=== PATIENT | male | born 1950 | race Caucasian/White ===

== ENCOUNTER 2019-11-13 14:55 | Emergency (ER) | payer OTHER, SELFPAY ==
--- NOTE | ~2019-11-13 | CT_ITS ---
EXAMINATION: CT brain wo con DATE: 11/13/2019 18:54 INDICATION: Vertigo TECHNIQUE: Computed tomography (CT) of the head was performed without intravenous contrast. The dose- length product was 681.00 mGy-cm. The mA was adjusted according to patient size. Iterative reconstruc tion technique was employed. COMPARISON: None FINDINGS: Brain parenchymal volume is normal for age. There are surgical changes in the right lobe. T here are scattered mild periventricular and subcortical white matter changes, most likely related to small vessel ischemic disease (microangiopathy). No ventriculomegaly or midline shift. Basilar cister ns are patent.There is mucosal thickening of the right maxillary sinus. Mastoids are pneumatized. No depressed skull fractures. No acute intracranial hemorrhage, infarction, mass or mass effect. Midline sagittal images are unremarkable. IMPRESSION: 1. No acute intracranial abnormality. 2: Chronic age-related findings. Reviewed, dictated and finalized at location A. TARY LANDFILL OPERATOR
[2019-11-13 15:00] VITALS: BP 172/105; PULSE 77; RESP 20; TEMP 37.2; O2SAT 100
--- NOTE | 2019-11-13 15:03 | ECG_ITS ---
Measurements Intervals [place] Rate: 67 P: 50 MS: 156 QRS: 9 QRSD: 86 T: 31 QT: 370 QTc: 391 Interpretive Statements SINUS RHYTHM BORDERLINE ST-T WAVE ABNORMALITY- INFERIOR LEADS BASELINE ARTIFACT- I, II, AVR, AVL, AVF BORDERLINE ECG Electronically Signed On 11-13-2019 17:34:04 [employer]IST[employer] by Macario Macdonald D.O.
--- NOTE | 2019-11-13 18:19 | ED.DIZZY ---
HPI - Dizziness General Chief Complaint: Dizziness Stated Complaint: little touch of the vertigo Time Seen by Provider: 11/13/19 18:16 Source: patient and RN notes reviewed Mode of arrival: ambulatory Limitations: no limitations History of Present Illness HPI Narrative: Pt is a 69 y/o male who presents to the ED with c/o dizziness starting 2 days ago. He notes that he slipped on ice and fell while getting out of his van 10 days ago. Pt states that he struck the lt side of his head on the door of his van during the fall. He notes that he tried getting out of bed Wednesday morning when he suddenly felt funky, stating that the room began spinning. Pt notes that he was unable to fully get out of bed for some time due to his symptoms, but states that his symptoms alleviated later Wednesday night. He notes that his dizziness is aggravated with laying on his rt side. Pt also reports a diffuse rt sided headache, intermittent rt sided toothache since yesterday, and chronic tinnitus. He denies any nausea, vomiting, or weakness. MD elicited complaint: dizziness Onset (ago): day(s) (2) Timing: sudden onset Description: room spinning Context: change in body position Exacerbating factors: change in body position and position/lying down (laying on rt side) Associated symptoms: tinnitus (chronic) and other (diffuse rt sided headache; rt sided toothache) Related Data Home Medications Medication Instructions Recorded Confirmed brimonidine 0.1 % eye drops See Rx Instructions .ROUTE .COMPLEX 09/29/19 dorzolamide 22.3 mg-timolol 6.8 See Rx Instructions .ROUTE .COMPLEX 09/29/19 mg/mL eye drops timolol 0.5 % eye drops See Rx Instructions .ROUTE .COMPLEX 09/29/19 lisinopril 20 mg tablet 20 mg PO DAILY 10/05/19 uwuizoje-ktr-lwpgm acid 300 1 tablet PO DAILY 10/05/19 mcg-lycopene 600 mcg-lutein 300 mcg tablet omega-3s 300 ei-hyz-wra-other cap PO DAILY cap 10/05/19 kmtvu2j-udee oil 1,000 mg capsule Allergies Allergy/AdvReac Type Severity Reaction Status Date / Time No Known Allergies Allergy Mild Verified 11/29/15 10:31 Review of Systems Review of Systems: All systems reviewed & are unremarkable except as noted in HPI and below ENT: Reports dental pain (rt sided toothache) and Reports tinnitus (chronic) Gastrointestinal: Gastrointestinal: Denies nausea and Denies vomiting Neurologic: Reports dizziness, Reports headache(s) (diffuse rt sided) and Denies weakness PMFSH Past Medical History Medical History Cataracts, bilateral Gout HTN (hypertension) Pneumonia Surgical History Surgical History Hx of appendectomy Hx of cataract surgery lens implant in rt eye Social History Social History Smoking status: Never smoker Alcohol intake: never Exam Const: General: no acute distress, well developed and other (elderly) Nutritional Appearance: well nourished HENMT: Ears: external ears normal and TM's normal bilaterally Mouth: Yes lip normal and Yes moist mucous membranes Eyes: Conjunctivae: conjunctivae normal Pupils: Equal, round and reactive pupils present EOM: Nystagmus present (rt going) Resp: Effort & Inspection: normal respiratory effort Auscultation: clear to auscultation bilaterally Cardio: Rate: regular rate Rhythm: regular rhythm Heart sounds: no murmurs GI: GI Palp: Yes Soft to palpation and No Tenderness to palpation present (GI) Auscultation: normal bowel sounds Skin: General skin exam: normal color, dry skin and other (warm) Neuro: General: patient oriented x3 (alert) Speech: normal speech Extrem: General: full ROM Psych: Mental Status: mental status grossly normal Affect: normal affect Course Vital Signs Vital signs: Vital Signs Temperature 37.2 C 11/13/19 15:00 Pulse Rate 77 11/13/19 15:00 Respiratory Rate 20 11/13/19 15:00 B
[2019-11-13 18:20] VITALS: PULSE 80; RESP 13; O2SAT 100
[2019-11-13 18:38] VITALS: BP 190/97; PULSE 81
[2019-11-13] MEDS: SODIUM CHLORIDE 0.9% IV 1,000 ML 999 ML IV CONT (18:38)
[2019-11-13] MEDS: MECLIZINE HCL 25 MG TABLET PO (18:38)
[2019-11-13 18:48] LABS: Basophils Absolute Auto 0.1 K/mm3 (0.0-0.1); Basophils Percent Auto 0.9 % (0.2-1.2); Eosinophils Absolute Auto 0.1 K/mm3 (0-0.3); Hematocrit 44.9 % (42.0-52.0); Hemoglobin 15.3 g/dL (14.0-18.0); Immature Granulocyte Absolute 0.03 K/mm3 (0.00-0.031); Immature Granulocyte Percent A 0.3 % (0-0.5); Lymphocytes Absolute Auto 1.98 K/mm3 (0.9-3.2); Lymphocytes Percent Auto 21.7 % (18.3-44.2); Mean Corpuscular HGB Conc 34.1 g/dl (32-36); Mean Corpuscular Hemoglobin 31.2 pg (26-34); Mean Corpuscular Volume 91.4 fl (80-100); Mean Platelet Volume 9.8 fl (7.4-10.4); Monocytes Absolute Auto 0.6 K/mm3 (0.1-0.6); Monocytes Percent Auto 6.7 % (2.6-8.5); Neutrophils Absolute Auto 6.4 K/mm3 (1.3-6.7); Neutrophils Percent Auto 69.4 % (45.5-73.1); Platelet Count Result 226 k/mm3 (150-375); Red Blood Count 4.91 M/mm3 (4.6-6.20); Red Cell Distribution Width 13.4 % (11.5-14.5); White Blood Count 9.1 K/mm3 (4.5-10.0)
[2019-11-13 19:01] LABS: Blood Urea Nitrogen 18 mg/dL (9-20); Calcium 9.1 mg/dL (8.4-10.2); Carbon Dioxide 19 mmol/L (22-30); Chloride 106 mmol/L (98-107); Estimated Glomerular Filt Rate 60; Glucose 88 mg/dL (75-110); Sodium 141 mmol/L (137-145)
[2019-11-13 19:13] VITALS: BP 203/107; PULSE 75
[2019-11-13 19:15] VITALS: BP 182/99; PULSE 78
--- NOTE | 2019-11-13 20:07 | PC.NURSE ---
AMBULATED PT PER EDP. PT STATED HE DID NOT FEEL DIZZY DURING AMBULATION ASSESSMENT.
[2019-11-13 20:43] VITALS: BP 172/93; PULSE 75; RESP 16; O2SAT 100
== END 2019-11-13 20:54 | disposition home or self-care (01) ==
PROVIDERS: Emergency Provider Emergency Medicine; PCP Internal Medicine
DX: R42 Dizziness and giddiness (principal); I10 Essential (primary) hypertension; M10.9 Gout, unspecified; Z98.42 Cataract extraction status, left eye; Z98.41 Cataract extraction status, right eye; Z96.1 Presence of intraocular lens; R94.31 Abnormal electrocardiogram [ECG] [EKG]
CPT/HCPCS: 36415; 70450; 80048; 85025; 93005; 96360; 96361; 99284; A9270; J7030

== ENCOUNTER 2021-08-23 13:36 | Emergency (ER) | payer OTHER, SELFPAY ==
[2021-08-23 13:47] VITALS: BP 125/92; PULSE 68; RESP 18; TEMP 36.6; O2SAT 100
--- NOTE | 2021-08-23 14:03 | ED.GENADULT ---
HPI - General Adult General Chief complaint: Ear Stated complaint: ear clogged Time Seen by Provider: 08/23/21 14:03 Source: patient Mode of arrival: ambulatory Limitations: no limitations History of Present Illness HPI narrative: 71-year-old male patient presents to the [facility] with complaints of left ear clogged states that he can only hear very little out of it. Patient states he has had issues with impacted earwax his entire life. Patient states he has been trying to put some Debrox in it for the last couple of days to soften it up but he is not having any luck getting it out. Related Data Home Medications Medication Instructions Recorded Confirmed brimonidine 0.1 % eye drops See Rx Instructions .ROUTE .COMPLEX 09/29/19 08/23/21 dorzolamide 22.3 mg-timolol 6.8 See Rx Instructions .ROUTE .COMPLEX 09/29/19 08/23/21 mg/mL eye drops timolol 0.5 % eye drops See Rx Instructions .ROUTE .COMPLEX 09/29/19 08/23/21 bvvxgbuu-ovh-bjahf acid 300 1 tablet PO DAILY 10/05/19 08/23/21 mcg-lycopene 600 mcg-lutein 300 mcg tablet omega-3s 300 cv-xub-rcw-other 1 cap PO DAILY cap 10/05/19 08/23/21 jtkqm8q-bnvo oil 1,000 mg capsule latanoprost 0.005 % eye drops 1 drop EACH EYE DAILY 07/02/20 08/23/21 Allergies Allergy/AdvReac Type Severity Reaction Status Date / Time No Known Allergies Allergy Mild Verified 07/22/21 14:10 Review of Systems Review of Systems: CONSTITUTIONAL: Denies fever, chills, or sweats. EYES: Denies visual changes, redness, or discharge. ENT: Denies rhinorrhea, congestion, sore throat, or otalgia. Positive left earwax with decreased hearing CARDIOVASCULAR: Denies chest pain, palpitations, or edema. RESPIRATORY: Denies cough or dyspnea. GASTROINTESTINAL: Denies abdominal pain, nausea, vomiting, or diarrhea. GENITOURINARY: Denies dysuria or hematuria. SKIN: Denies rash or itching. MUSCULOSKELETAL: Denies back pain, joint pain, or myalgia. NEUROLOGIC: Denies headache, numbness, or weakness. PSYCHIATRIC: Denies anxiety or depression. [facility] Past Medical History Medical History (Updated 11/27/21 @ 14:17 by BREANNA Jonas) Cataracts, bilateral Gout HTN (hypertension) Pneumonia Surgical History Surgical History Hx of appendectomy Hx of cataract surgery lens implant in rt eye Family History Family History Father Family history of pancreatic cancer, Onset Age: 57 Mother Family history of congestive heart failure, Onset Age: 79 Social History Social History Smoking status: Never smoker Alcohol intake: never Comments At the time of my signature I agree with nursing past medical history, surgical, social, and family history. There is no relevant family history pertinent to the presenting complaint. Exam Narrative: GENERAL: Well-appearing, well-nourished, and in no acute distress. HEAD: Normocephalic, atraumatic. EYES: PERRLA and EOMI. ENT: Nares clear, no rhinorrhea or epistaxis. Mucous membranes moist. Patient has impacted earwax noted to bilateral ears. NECK: Supple. No lymphadenopathy CHEST: Clear to auscultation. No respiratory distress. HEART: Regular rate and rhythm. No murmur heard. Normal peripheral pulses. ABDOMEN: Soft, nontender, nondistended, normal active bowel sounds. EXTREMITIES: Normal range of motion. No edema. SKIN: Warm, dry, no rash. NEURO: No focal deficits. Alert and oriented x3. Course Vital Signs Vital signs: Vital Signs Temperature 36.6 C 08/23/21 13:47 Pulse Rate 68 08/23/21 13:47 Respiratory Rate 18 08/23/21 13:47 Blood Pressure 125/92 H 08/23/21 13:47 Pulse Oximetry 100 08/23/21 13:47 Temperature 36.6 C 08/23/21 13:47 Pulse Rate 68 08/23/21 13:47 Respiratory Rate 18 08/23/21 13:47 Blood Pressure 125/92 H 08/23/21 13:47 Pulse
== END 2021-08-23 14:30 | disposition home or self-care (01) ==
PROVIDERS: Emergency Provider Nurse Practitioner Family
DX: H61.23 Impacted cerumen, bilateral (principal); M10.9 Gout, unspecified; I10 Essential (primary) hypertension
CPT/HCPCS: 69210; 99212; G0463

== ENCOUNTER 2022-03-13 09:43 | Emergency (ER) | payer OTHER, SELFPAY ==
[2022-03-13 09:54] VITALS: BP 130/84; PULSE 79; RESP 16; TEMP 37.2; O2SAT 98
--- NOTE | 2022-03-13 09:54 | ED.GENADULT ---
HPI - General Adult General Chief complaint: Wound/Laceration Stated complaint: Swelling of finger Time Seen by Provider: 03/13/22 09:55 Source: patient Mode of arrival: ambulatory Limitations: no limitations History of Present Illness HPI narrative: Mr. Oro is a 72-year-old male patient presenting to the clinic today with complaints of right third finger MIP joint swelling x2 days. He reports that his left thumb initially started swelling and he took some colchicine and this had helped however he is now having pain and swelling in the right third finger. He believes that he is in a gout flare. He denies any known injury to the left third finger. Is having difficulty flexing the third finger therefore he had called off work today. Related Data Home Medications Medication Instructions Recorded Confirmed brimonidine 0.1 % eye drops See Rx Instructions .Route .COMPLEX 09/29/19 12/02/21 (Alphagan P) dorzolamide 22.3 mg-timolol 6.8 See Rx Instructions .Route .COMPLEX 09/29/19 12/02/21 mg/mL eye drops timolol 0.5 % eye drops (Betimol) See Rx Instructions .Route .COMPLEX 09/29/19 12/02/21 ezygkrbh-bmh-lfpjg acid 300 1 tablet PO DAILY 10/05/19 12/02/21 mcg-lycopene 600 mcg-lutein 300 mcg tablet (Centrum Silver Men) omega-3s 300 cd-sjk-vax-other 1 cap PO DAILY 10/05/19 12/02/21 ywzai6o-iymn oil 1,000 mg capsule ([employer]spring-3 Fish Oil) latanoprost 0.005 % eye drops 1 drop ophthalmic (eye) DAILY 07/02/20 12/02/21 Allergies Allergy/AdvReac Type Severity Reaction Status Date / Time No Known Allergies Allergy Mild Verified 03/13/22 09:56 Review of Systems Review of Systems: Pertinent positives per HPI. Patient denies any fever, chills, rash, headache, visual changes, dizziness, cough, runny nose, sore throat, shortness of breath, chest pain, palpitations, nausea, vomiting, diarrhea, constipation, abdominal pain, or any urinary issues. PMFSH Past Medical History Medical History Abnormal PSA Body mass index [BMI] 28.0-28.9, adult (06/01/17) Cataracts, bilateral Glaucoma Gout HTN (hypertension) Idiopathic chronic gout, unspecified ankle and foot, without tophus (tophi) Mixed hyperlipidemia Pneumonia Vitamin D deficiency Surgical History Surgical History Hx of appendectomy Hx of cataract surgery lens implant in rt eye Family History Family History Father Family history of pancreatic cancer, Onset Age: 57 Mother Family history of congestive heart failure, Onset Age: 79 Social History Social History Smoking status: Never smoker Alcohol intake: never Comments At the time of my signature, I reviewed and agree with the nursing past medical, surgical, social, and family history. There is no relevant family history pertinent to the patient complaint. Exam Narrative: General: Well-developed, well nourished, in no apparent distress Head: Normocephalic, atraumatic. Cardio: Regular rate and rhythm, s1 and s2 normal, no murmur appreciated. Resp: Clear to auscultation bilaterally, no rhonchi, rales, wheezing or rubs. Musculoskeletal: No deformity, redness, swelling, and tenderness to palpation over the right third MIP joint, joint range of motion very limited due to pain and swelling, muscle strength strong and equal, peripheral pulse strong, no cyanosis, normal gait and station Course Course Emergency Course: Portions of this record may have been created with voice recognition software. Level of Care: Express Care Visit Vital Signs Vital signs: Vital signs reviewed Medical Decision Making MDM Narrative Medical decision making narrative: At the time of visit patient is resting comfortably on the exam table. No injury to the r
== END 2022-03-13 10:00 | disposition home or self-care (01) ==
PROVIDERS: Emergency Provider Nurse Practitioner Family; PCP Emergency Medicine
DX: M10.9 Gout, unspecified (principal); M25.441 Effusion, right hand; H40.9 Unspecified glaucoma; I10 Essential (primary) hypertension; E78.2 Mixed hyperlipidemia
CPT/HCPCS: 99213; G0463

== ENCOUNTER 2022-12-23 12:21 | Outpatient (CLI) | payer OTHER, SELFPAY ==
--- NOTE | ~2022-12-23 | US_ITS ---
EXAMINATION: US renal BI DATE: 12/23/2022 12:53 INDICATION: Chronic kidney disease TECHNIQUE: Multiple grayscale and Doppler ultrasound images of the kidneys were obtained. COMPARISON: None. FINDINGS: The right kidney measures 9.9 x 5.1 x 5.0 cm. The left kidney measures 10.2 x 5.2 x 4.4 cm. The kidneys demonstrate normal parenchymal echogenicity. There is no hydronephrosis. The bladder is mildly distended but otherwise normal in appearance. Prostatomegaly is noted. IMPRESSION: 1. Normal kidneys without hydronephrosis. 2. Mild distention of the otherwise normal-appearing urinary bladder. Reviewed, dictated and finalized at location F.
== END 2022-12-23 12:22 | disposition home or self-care (01) ==
LOC: ANHIMG 12:23
PROVIDERS: PCP Emergency Medicine; Visit Provider Internal Medicine Nephrology
DX: M10.9 Gout, unspecified (principal); N18.31 Chronic kidney disease, stage 3a; N32.89 Other specified disorders of bladder
CPT/HCPCS: 76775

== ENCOUNTER 2024-07-17 14:36 | Outpatient (CLI) | payer OTHER, SELFPAY ==
[2024-07-17 14:53] LABS: Basophils Absolute Auto 0.1 K/mm3 (0.0-0.1); Basophils Percent Auto 0.7 % (0.2-1.2); Eosinophils Absolute Auto 0.2 K/mm3 (0-0.3); Eosinophils Percent Auto 1.8 % (0-4.4); Hematocrit 41.7 % (42.0-52.0); Hemoglobin 14.2 g/dL (14.0-18.0); Immature Granulocyte Absolute 0.03 K/mm3 (0.00-0.031); Immature Granulocyte Percent A 0.4 % (0-0.5); Lymphocytes Absolute Auto 1.92 K/mm3 (0.9-3.2); Lymphocytes Percent Auto 23.5 % (18.3-44.2); Mean Corpuscular HGB Conc 34.1 g/dl (32-36); Mean Corpuscular Hemoglobin 31.9 pg (26-34); Mean Corpuscular Volume 93.7 fl (80-100); Mean Platelet Volume 9.2 fl (7.4-10.4); Monocytes Absolute Auto 0.6 K/mm3 (0.1-0.6); Monocytes Percent Auto 7.5 % (2.6-8.5); Neutrophils Absolute Auto 5.4 K/mm3 (1.3-6.7); Neutrophils Percent Auto 66.1 % (45.5-73.1); Platelet Count Result 248 k/mm3 (150-375); Red Blood Count 4.45 M/mm3 (4.6-6.20); Red Cell Distribution Width 13.7 % (11.5-14.5); White Blood Count 8.2 K/mm3 (4.5-10.0)
[2024-07-17 16:47] LABS: Alanine Aminotransferase 17 U/L (6-50); Albumin Level 4.4 g/dL (3.5-5.1); Alkaline Phosphatase 58 U/L (38-126); Anion Gap 9 mmol/L (4-12); Aspartate Amino Transferase 22 U/L (17-59); Bilirubin,Total 1.1 mg/dL (0.2-1.3); Blood Urea Nitrogen 20 mg/dL (9-20); Calcium 9.2 mg/dL (8.4-10.2); Carbon Dioxide 23 mmol/L (22-30); Chloride 105 mmol/L (98-107); Estimated Glomerular Filt Rate 43; Glucose 94 mg/dL (65-110); Potassium 4.8 mmol/L (3.4-5.0); Sodium 137 mmol/L (137-145)
[2024-07-17 16:48] LABS: Immunoglobulin A 356 mg/dL (70-400); Immunoglobulin G 1260 mg/dL (700-1600); Immunoglobulin M 40 mg/dL (40-230)
[2024-07-19 15:38] LABS: Kappa\\Lambda Light Chains 1.04 (0.26-1.65); Lambda Light Chain 47.1 mg/L (5.7-26.3)
[2024-07-24 15:08] LABS: Alpha 1 Globulin 0.3 g/dL (0.2-0.3); Alpha 2 Globulin 0.7 g/dL (0.5-0.9); Beta 1 Globulin 0.5 g/dL (0.4-0.6); Gamma Globulin 1.1 g/dL (0.8-1.7)
== END 2024-07-17 14:37 | disposition home or self-care (01) ==
LOC: ANHLAB 14:39
PROVIDERS: PCP Emergency Medicine; Visit Provider Internal Medicine Hematology & Oncology
DX: D72.9 Disorder of white blood cells, unspecified (principal)
CPT/HCPCS: 36415; 80053; 82784; 83883; 84155; 84165; 85025

== ENCOUNTER 2024-07-18 10:02 | Outpatient (CLI) | payer OTHER, SELFPAY ==
--- NOTE | ~2024-07-18 | XR_ITS ---
EXAMINATION: XR bone survey comp/metastic DATE: 07/18/2024 10:51 INDICATION: Plasma cell disorder. TECHNIQUE: 29 views of a skeletal survey were obtained. COMPARISON: None. FINDINGS: The chest demonstrates clear lungs without pneumonia, pleural effusion, or pneumothorax. Th e heart size is normal. Surgical clips overlie right pelvis. There is mild chronic anterior wedging o f multiple thoracic vertebral bodies. There is no lytic lesion of bone to suggest multiple myeloma. IMPRESSION: 1. No evidence of multiple myeloma. Reviewed, dictated and finalized at location A.
== END 2024-07-18 10:03 | disposition home or self-care (01) ==
PROVIDERS: PCP Emergency Medicine; Visit Provider Internal Medicine Hematology & Oncology
DX: D72.9 Disorder of white blood cells, unspecified (principal)
CPT/HCPCS: 77075

== ENCOUNTER 2024-10-20 01:41 | Day surgery (SDC) | payer OTHER, SELFPAY ==
[2024-10-06 11:13] VITALS: BMI 26.6
--- OUTSIDE RECORDS SUMMARY | 2024-10-20 06:28 | XMS_ITS | Data Portability ---
Author Organization [facility] Address [address] [place] [phone] Assessment No assessment recorded. Plan of Treatment Reminders Order Date Submit Date Provider Last Modified By Organization Details Last Modified Time Details Appointments None recorded. Lab None recorded. Referral None recorded. Procedures None recorded. Surgeries None recorded. Imaging x-ray, chest 2015 016 JAROCHO Not available 6 00:14:12 Medication Orders Medrol (Pedro) 4 mg tablets in a dose pack 2014 015 [facility] [address] [place], [address], 6 10:55:23 allopurino l 100 mg tablet 2014 015 [facility] [address] [place], [address], 5 16:10:24 allopurino l 100 mg tablet 2015 016 [facility] [address] [place], [address], 6 11:32:11 lisinopril 20 mg tablet 2015 016 [facility] [address] [place], [address], 6 11:32:11 Zithromax Z-Pedro 250 mg tablet 2015 016 [facility] [address] [place], [address], 6 10:55:15 lisinopril 20 mg tablet 2015 016 INTERFACE [facility] [address] [place], [address], 6 12:35:12 lisinopril 20 mg tablet 2015 016 DBA_PATCH_ [id number] [facility] [address] [place], [address], 6 04:33:19 Patient TargetsNo targets recorded. Patient Instructions Encounter Date Encounter Id Patient Instructions Last Modified By Organization Details Last Modified Time 07/05/2015 [id number] retinal detachment: care instructions dskaer Not available 07/05/2015 16:30:59 learning about high blood pressure dskaer Not available 07/05/2015 16:30:59 11/27/2015 [id number] learning about high blood pressure strice Not available 11/27/2015 11:42:25 bronchitis: care instructions strice Not available 11/27/2015 11:42:25 12/25/2015 [id number] pneumonia: care instructions strice Not available 12/25/2015 16:14:32 03/18/2016 [id number] pneumonia: care instructions strice Not available 03/18/2016 13:41:12 learning about high blood pressure strice Not available 03/18/2016 13:41:12 09/08/2016 [id number] retinal detachment: care instructions sieh Not available 09/08/2016 10:57:34 learning about high blood pressure jhsieh Not available 09/08/2016 10:57:33 Reason for Referral None Reported. Results Created Date Observation Date Name Description Value Unit Range Abnormal Flag Note LastModifiedBy Organization Detail LastModifiedTime 12/05/19 16 12/05/2015 meghna don/edna tenorio No observ ation record ed. sieh Not Available 2015 15:44:52 01/02/20 16 01/02/2016 sbsws PT NAME: Leeann GUZMAN : 1949 PT SEX/AG E: PT ACCT NUMBER : [id number] PT MR#: [id number] ROOM/B ED: PT STATUS : REG CLI DATE OF EXAMIN ATION: ORDERI NG PHYSIC GABY: SEBLE MCLAUGHLIN* M.DDeniz ATTEND ING PHYSIC GABY: SEBLE MCLAUGHLIN* , M.D. DICTAT ING PHYSIC GABY: Hay MONTENEGRO M.D. 093 [id number] 6.001A [place] 13:15: 00 20.002 6XY (JOHN) : CHEST- TWO VIEW 13:15: 00 INDICA TION: Follow up pneumo elis. TECHNI QUE: 2 view chest COMPAR LUIS ALBERTO: 11/29/19 16 FINDIN GS: Heart size normal . Right basila r airspa ce diseas e, slight ly improv ed compar ed to the prior study. No pleura l effusi on. Heart size normal . No edema or pneumo thorax . IMPRES TOOTIE: 1: Improv ing bibasi lar airspa ce diseas e, consis tent with resolv ing pneumo elis. Follow up chest x-ray in 4-6 weeks recomm ended. __ Review ed, dictat ed and finali zed at Locati on B. __ Electr onical ly signed by: LONI MONTENEGRO Date: Time: 16:02 LONI MONTENEGRO M.D.__ ___ [facility] [address] [place] [id number] [facility] (Imaging) [address] [place] [address] [place] [address], [phone], 03/18/2016 12:33:16 01/02/20 16 01/02/2016 x-ray , chest No observ ation record ed. [address] [facility], [place], [address], 03/18/2016 12:33:16 01/06/20 16 01/06/2016 x-ray , chest , 2 view No observ ation record ed. asavala Not Available 2015 17:04:03 11/13/19 20 11/13/2019 CT, brain , w/o contr ast No observ ation record ed. [place] [id number] [facility] [address], [place], [address], 11/14/2019 16:45:15 Result Notes None recorded. Problems Name Problem SNOMED Code Status Onset Date Resolution Date Notes Provider Name and Address Organization Details Recorded Time Essential hypertension 57256067 Active Seble Mclaughlin MD Attn: Kristan sanders,[address] [facility], [place], [address], [facility] 6 12:35:05 Hearing disorder 297005861 Active Seble Mclaughlin MD Attn: Kristan sanders,[address] [facility], [place], [address], [facility] 6 12:35:05 Gouty arthritis of the hand 876709896 Daniela Mclaughlin MD Attn: Kristan sanders,[address], [place], [address], [place] - [facility] 6 11:31:14 Retinal detachment 88622702 Active Seble Mclaughlin MD Attn: Kristan sanders,[address], [place], [address], [place] - [facility] 5 16:10:16 Acute bronchitis 88436915 Active Seble Mclaughlin MD Attn: Kristan sanders,[address], [place], [address], [place] - [facility] 6 11:31:14 Pneumonia 235024007 Active Seble Mclaughlin MD Attn: Kristan sanders,[address], [place], [address], [facility] 6 12:35:05 Problem Notes None recorded. Procedures Surgical History Date Name Laterality Status Provider Name and Address Organization Details Recorded Time Appendectomy completed Danny Garcia MA [facility] 11/26/2014 13:05:06 Eye Surgery completed Danny Garcia MA [facility] 11/26/2014 13:05:06 Colonoscopy completed Danny Garcia MA [facility] 11/26/2014 13:10:53 Imaging Results Imaging Date Name Status LastModified by Organiz ation Details LastModified Time 12/05/2015 imaging/diagn ostic result completed [facility] Information not available 12/25/2015 15:44:52 01/02/2016 sbsws completed [facility] [address] [place] [address], [phone], 03/18/2016 12:33:16 01/02/2016 x-ray, chest completed [facility] [address] [place] [address], [address], 03/18/2016 12:33:16 01/06/2016 x-ray, chest, 2 view completed asavala Information not available 03/19/2016 17:04:03 11/13/2019 CT, brain, w/o contrast completed [address] [place], [address], 11/14/2019 16:45:15 Procedure Notes None recorded. Medical Equipment None Reported. Allergies No known drug allergies Medications Name Sig Start Date Stop Date Status Note LastModified by Organization Details LastModified Time azithromycin 250 mg tablet TAKE 2 TABLETS (500 MG) BY ORAL ROUTE ONCE DAILY FOR 1 DAY THEN 1 TABLET (250 MG) BY ORAL ROUTE ONCE DAILY FOR 4 DAYS 09/08 completed Not Available Not Available Not Available lisinopril 20 mg tablet Take 1 tablet every day by oral route for 30 days. 2015 active Not Available Not Available Not Avai lable allopurinol 100 mg tablet Take 1 tablet every day by oral route for 30 days. active Not Available Not Available No t Available naproxen sodium 550 mg tablet active Not Available Not Available No t Available brimonidine 0.2 % eye drops active Not Available Not Available Not Available montelukast 10 mg tablet 09/08 completed Not Available Not Available Not Available methylpredni solone 4 mg tablets in a dose pack Take 1 tablet every day by oral route for 6 days. 09/08 completed Not Available Not Available Not Available timolol maleate 0.5 % eye drops active Not Available Not Available Not Available metocloprami de 10 mg tablet 09/08 completed Not Available Not Available Not Available dorzolamide 2 % eye drops active Not Available Not Available Not Available Vitals Date Recorded Body weight Body height Body mass index (BMI) Systolic blood pressure Diastolic blood pressure Provider Name and Address Organization Details Last Updated DateTime 07/05/2015 85784.01 6566 g 168.91 cm 30.5 kg/m2 126 mm[Hg] 78 mm[Hg] Danny Garcia MA [place] - [facility] 5 15:44:15 Date Recorded Oxygen saturation Oxygen saturation in Arterial blood by Pulse oximetry Body temperature Heart rate Provider Name and Address Organization Details Last Updated DateTime 07/05/2015 100 % 100 % 97.3 [degF] 69 /min Danny Garcia MA [place] - [facility] 5 15:44:16 Date Recorded Body height Oxygen saturation Oxygen saturation in Arterial blood by Pulse oximetry Body weight Body temperature Body mass index (BMI) Heart rate Systolic blood pressure Diastolic blood pressure Provider Name and Address Organization Details Last Updated DateTime 6 168.91 cm 97 % 97 % 92842.2 46333 g 98.2 [degF] 30.8 kg/m2 86 /min 92 mm[Hg] 60 mm[Hg] Danny Radha, MA [facility] 6 10:40:00 Date Recorded Body height Body temperature Oxygen saturation Oxygen saturation in Arterial blood by Pulse oximetry Body weight Body mass index (BMI) Heart rate Provider Name and Address Organization Details Last Updated DateTime 6 168.91 cm 98.2 [degF] 99 % 99 % 82841.3 28237 g 30.1 kg/m2 82 /min Danny GarciaPATRICIA [facility] 6 15:18:00 Date Recorded Body weight Body mass index (BMI) Oxygen saturation Oxygen saturation in Arterial blood by Pulse oximetry Heart rate Body height Body temperature Systolic blood pressure Diastolic blood pressure Provider Name and Address Organization Details Last Updated DateTime 6 34360.4 48375 g 29.5 kg/m2 99 % 99 % 63 /min 168.91 cm 98 [degF] 136 mm[Hg] 84 mm[Hg] Danny [place], MA [facility] 6 11:56:58 Date Recorded Body height Provider Name an d Address Organization Details Last Updated DateTime 09/08/2016 168.91 cm Danny Garcia MA [facility] 2015 09:40:59 Date Recorded Body weight Body mass index (BMI) Provider Name and Address Organization Details Last Updated DateTime 09/08/2016 03176.43 g 29.3 kg/m2 Danny Garcia MA [facility] 09/08/2016 09:54:16 Date Recorded Body temperature Provider Name a nd Address Organization Details Last Updated DateTime 09/08/2016 97.7 [degF] Danny Garcia MA [facility] 09/08/2016 09:55:39 Date Recorded Oxygen saturation Oxygen saturation in Arterial blood by Pulse oximetry Provider Name and Address Organization Details Last Updated DateTime 09/08/2016 98 % 98 % Danny Garcia MA [facility] 09/08/2016 09:58:00 Date Recorded Heart rate Provider Name an d Address Organization Details Last Updated DateTime 09/08/2016 67 /min Danny Garcia MA [facility] 2015 09:58:02 Date Recorded Systolic blood pressure Diastolic blood pressure Provider Name and Address Organization Details Last Updated DateTime 12/25/2015 144 mm[Hg] 82 mm[Hg] Danny Garcia MA [facility] 12/25/2015 15:19:51 Date Recorded Systolic blood pressure Diastolic blood pressure Provider Name and Address Organization Details Last Updated DateTime 09/08/2016 96 mm[Hg] 70 mm[Hg] Danny Garcia MA [facility] 09/08/2016 09:59:48 Social History Question Answer Notes LastModified by Organizat ion Details LastModified Time Tobacco Smoking Status Never Smoker Danny Garcia MA null, [facility] 11/26/2014 10:28:07 What Is Your Level Of Alcohol Consumption? None [email or web address] Information not available 11/26/2014 Sex: Unknown Functional Status None recorded. Mental Status None recorded. Family History Relationship Description Onset Age of this Age Resolved Age Notes LastModified by Organization Details LastModified Time Mother Diabetes mellitus [email or web address] Not available 11/26 13:08:07 Medical History No medical history recorded. Past Encounters Encounter ID Performer Location Encounter Start Date Encounter Closed Date Diagnosis/Indication Diagnosis SNOMED-CT Code Diagnosis ICD10 Code Diagnosis Note [id number] [facility] (Adult [facility]) [address] [place] [address] 11/26/2014 10:13:23 11/26/2014 10:52:48 Essential hypertension 19466567 Adult heal th examination 105725469 History of retinal detachment 621938761 [id number] [facility] (Adult Med) [address] [place] [phone] 05/29/2015 09:33:31 05/29/2015 10:54:09 Essential hypertension 67205312 History of retinal detachment 559708028 Adult heal th examination 306905390 Hearing disorder 057372589 [id number] [facility] Coll[facility] (Adult Med) [address] [place] [address] 07/05/2015 15:10:56 07/08/2015 11:53:45 Gouty arthritis of the hand M10.049 Essential hypertension 36367730 I10 Hearing disorder 1880523 05 H91.90 Retinal detachment 89364 000 H35.70 [id number] Preethi Mercado is [facility] (Adult Med) [address] [place] [address] 11/27/2015 10:19:44 11/27/2015 17:26:55 Acute bronchitis 55555718 J20.9 Essential hypertension 85553684 I10 Gouty arth ritis of the hand M10.049 Hearing disorder 5949749 05 H91.90 History of retinal detachment 166716072 H35.9 [id number] Preethi Mercado is [facility] (Adult Med) [address] [place] [address] 12/25/2015 15:03:27 12/25/2015 16:01:36 Pneumonia 855094211 J18.9 [id number] Selwyn Wynne [facility] (Adult Med) [address] [place] [address] 03/18/2016 11:47:21 03/18/2016 12:39:28 Essential hypertension 47165866 I10 Hearing disorder 2573889 05 H91.90 Pneumonia 375437653 J18. 9 History of retinal detachment 372491129 H35.9 [id number] [facility] (Adult Med) [address] [place] [address] 09/08/2016 09:38:54 09/08/2016 11:08:11 Essential hypertension 53407961 I10 Retinal detachment 51979 000 H35.70 Hearing disorder 0193290 05 H91.90 Health Concerns Section Related Observation LastModified by Organization Detai ls LastModified Time None Recorded Concern Status LastModified by Organization Details LastModified Time None Recorded Advance Directives Directive None Recorded Payers Encounter Date Sequence Insurance Name Policy Number Policy Olea Covered Member ID Olea Member ID Guarantor Name 07/05/2015 1 [employer] PRIOR TO 03/27/2021 (MEDICAID REPLACEMENT - HMO) Rodney Guzman [id number] Rodney Guzman 11/27/2015 1 [employer] PRIOR TO 03/27/2021 (MEDICAID REPLACEMENT - HMO) Rodney Guzman [id number] Rodney Guzman 12/25/2015 1 [facility] PRIOR TO 03/27/2021 (MEDICAID REPLACEMENT - HMO) Rodney Mcallisterp [id number] Rodney [place] 03/18/2016 1 [employer] PRIOR TO 03/27/2021 (MEDICAID REPLACEMENT - HMO) Rodney Mcallisterp [id number] Rodney Mcallisterp 09/08/2016 1 [employer] PRIOR TO 03/27/2021 (MEDICAID REPLACEMENT - HMO) Rodney Mcallisterp [id number] Rodney [place] Notes Date Note Type Note Provider Name and Address Organization Details Recorded Time 07/05/2015 text/html Flare up of gout y arthritis over the right thumb, went ER where got naproxen. Seble Mclaughlin MD Attn: Accounting[address] [facility], [place], [address], [facility] 07/05/2015 16:10:18 12/25/2015 text/html He feels fantast ic now after finished the antibiotic from ER 3 weeks ago, no chest symptoms, no chest pain, no cough, no shortness of breathing, no fever, not a smoker. Seble Mclaughlin MD Attn: Accounting,[address] [facility], [place], [address], [facility] 12/25/2015 15:48:47 03/18/2016 text/html F/U for hypertension and resolved pneumonia. He stated that he no longer needs allopurinol. Seble Mclaughlin MD Attn: Accounting,[address] [facility], [place], [address], [facility] 03/18/2016 12:35:07
[2024-10-20 11:10] VITALS: BP 133/75; PULSE 77; RESP 20; TEMP 35.9; O2SAT 100; BMI 26.2
[2024-10-20] MEDS: LACTATED RINGERS 1,000 ML 150 ML IV CONT (11:25)
--- NOTE | 2024-10-20 11:52 | WPDANESEPPF ---
Anes - Initial Pre Proc Eval Procedure: Operation Date: 10/20/24 12:30 Proposed Procedures p Screening Colonoscopy - Aj Street MD Date/Time: 10/20/24 11:52 Surgeon: Aj Street MD Pre Op Diagnosis: screening colon Patient Data Age: 74 Gender: M Height: 1.73 m Weight: 78.1 kg Last Vital Signs Temp 35.9 C L 10/20/24 11:10 Pulse 77 10/20/24 11:10 Resp 20 10/20/24 11:10 BP 133/75 10/20/24 11:10 Pulse Ox 100 10/20/24 11:10 O2 Del Method Room Air 10/20/24 11:10 Allergies Allergy/AdvReac Type Severity Reaction Status Date / Time No Known Allergies Allergy Mild Verified 10/20/24 11:08 Home Medications ?Medication ?Instructions ?Recorded ?Confirmed ?Type brimonidine 0.1 % eye drops See Rx Instructions .Route .COMPLEX 09/29/19 10/20/24 History (Alphagan P) dorzolamide 22.3 mg-timolol 6.8 See Rx Instructions .Route .COMPLEX 09/29/19 10/20/24 History mg/mL eye drops timolol 0.5 % eye drops (Betimol) See Rx Instructions .Route .COMPLEX 09/29/19 10/20/24 History ucqlhyyv-we-buagx 300 mcg-K 60 1 tablet PO DAILY 10/05/19 10/20/24 History mcg-lycop 600 mcg-lutein 300 mcg tablet (Centrum Silver Men) omega-3s 300 ph-rfa-mwi-other 1 cap PO DAILY 10/05/19 10/20/24 History cjnmw0a-douc oil 1,000 mg capsule ([place]-3 Fish Oil) latanoprost 0.005 % eye drops 1 drop ophthalmic (eye) DAILY 07/02/20 10/20/24 History colchicine 0.6 mg tablet See Rx Instructions .Route 03/31/22 10/06/24 Rx .COMPLEX #90 tabs lisinopril 40 mg tablet 40 mg PO DAILY #90 tabs 12/08/23 10/20/24 Rx allopurinol 100 mg tablet See Rx Instructions .Route 05/11/24 10/20/24 Rx .COMPLEX #90 tabs calcium carbonate (Tums) 500 mg PO DAILY 06/14/24 10/20/24 History atorvastatin 10 mg tablet See Rx Instructions .Route 08/07/24 10/20/24 Rx .COMPLEX #90 tabs Patient hx anesthesia problems: none Family hx anesthesia problems: none Results Review: All pre-operative results and documents have been reviewed as part of the pre-operative evaluation. [facility] Past Medical History Medical History (Updated 10/12/24 @ 11:54 by Gaye Hobbs MA) Excessive cerumen in both ear canals Gout, unspecified Abnormal PSA Body mass index [BMI] 28.0-28.9, adult (06/01/17) Glaucoma Idiopathic chronic gout, unspecified ankle and foot, without tophus (tophi) Mixed hyperlipidemia Vitamin D deficiency HTN (hypertension) Labyrinthitis, viral Gout Cataracts, bilateral Pneumonia HTN (hypertension) Surgical History Surgical History Hx of appendectomy Hx of cataract surgery lens implant in rt eye Family History Family History Father Family history of pancreatic cancer, Onset Age: 57 Mother Family history of congestive heart failure, Onset Age: 79 Social History Social History Smoking status: Never smoker Second hand tobacco smoke exposure: No Alcohol intake: never Substance use: never Substance use type: does not use Current Housing: Decline to Answer Concerned About Future Housing: Decline to Answer Difficulty Paying Gas/Electric Bills: Decline to Answer Difficulty Paying for Meds: Decline to Answer Currently Unemployed: Decline to Answer Education: Decline to Answer Difficulty w/ Childcare or Family Care: Decline to Answer Living arrangements: with family Occupation/Education: retired Gender identity (if verbalized by the patient): Male Spiritual care concerns: No Agree to blood products: Yes Anes - Eval Final PreProcedure Day of Procedure 10/20/24 11:52 Patient weight: overweight Heart: regular rate and rhythm Lungs: clear to auscultation Airway: Mallampati scale class II Neurological: alert and oriented Last oral intake: >/= 8 hours ASA classification: III Emergent: no Anesthetic plan: proceed Anesthesia type and monitoring: general GIVS and standard monitoring Results Review: All pre-operative results and documents have been reviewed as part of the pre-operative evaluation. Informed Consent: The patient's anesthetic plan and its attendant risks and benefits were discussed with the patient/family/POA. Questions were solicited and answers provided to the satisfaction of the patient/family/POA.
--- NOTE | 2024-10-20 12:11 | PM.HPGS ---
History of Present Illness History of Present Illness Consent: Risks, benefits, and alternatives have been discussed and questions answered. Patient agrees to proceed with procedure. Chief complaint: screening colon Narrative: Rodney Oro is a 74 year old male here for screening colonoscopy, last one 10 years ago Review of Systems Review of Systems: All systems reviewed & are unremarkable except as noted in HPI and below PMFSH Past Medical History Medical History (Updated 10/20/24 @ 12:[address] MD) Colon cancer screening Excessive cerumen in both ear canals Gout, unspecified Abnormal PSA Body mass index [BMI] 28.0-28.9, adult (06/01/17) Glaucoma Idiopathic chronic gout, unspecified ankle and foot, without tophus (tophi) Mixed hyperlipidemia Vitamin D deficiency HTN (hypertension) Labyrinthitis, viral Gout Cataracts, bilateral Pneumonia HTN (hypertension) Surgical History Surgical History Hx of appendectomy Hx of cataract surgery lens implant in rt eye Family History Family History Father Family history of pancreatic cancer, Onset Age: 57 Mother Family history of congestive heart failure, Onset Age: 79 Social History Social History Smoking status: Never smoker Second hand tobacco smoke exposure: No Alcohol intake: never Substance use: never Substance use type: does not use Current Housing: Decline to Answer Concerned About Future Housing: Decline to Answer Difficulty Paying Gas/Electric Bills: Decline to Answer Difficulty Paying for Meds: Decline to Answer Currently Unemployed: Decline to Answer Education: Decline to Answer Difficulty w/ Childcare or Family Care: Decline to Answer Living arrangements: with family Occupation/Education: retired Gender identity (if verbalized by the patient): Male Spiritual care concerns: No Agree to blood products: Yes Meds Home Medications and Allergies Home Medications ?Medication ?Instructions ?Recorded ?Confirmed ?Type brimonidine 0.1 % eye drops See Rx Instructions .Route .COMPLEX 09/29/19 10/20/24 History (Alphagan P) dorzolamide 22.3 mg-timolol 6.8 See Rx Instructions .Route .COMPLEX 01/03/20 01/24/25 History mg/mL eye drops timolol 0.5 % eye drops (Betimol) See Rx Instructions .Route .COMPLEX 09/29/19 10/20/24 History jzgcgklh-ay-oaffc 300 mcg-K 60 1 tablet PO DAILY 10/05/19 10/20/24 History mcg-lycop 600 mcg-lutein 300 mcg tablet (Centrum Silver Men) omega-3s 300 ug-ovo-bio-other 1 cap PO DAILY 10/05/19 10/20/24 History xdoks3i-xmbh oil 1,000 mg capsule ([place]-3 Fish Oil) latanoprost 0.005 % eye drops 1 drop ophthalmic (eye) DAILY 07/02/20 10/20/24 History colchicine 0.6 mg tablet See Rx Instructions .Route 03/31/22 10/06/24 Rx .COMPLEX #90 tabs lisinopril 40 mg tablet 40 mg PO DAILY #90 tabs 12/08/23 10/20/24 Rx allopurinol 100 mg tablet See Rx Instructions .Route 05/11/24 10/20/24 Rx .COMPLEX #90 tabs calcium carbonate (Tums) 500 mg PO DAILY 06/14/24 10/20/24 History atorvastatin 10 mg tablet See Rx Instructions .Route 08/07/24 10/20/24 Rx .COMPLEX #90 tabs Allergies Allergy/AdvReac Type Severity Reaction Status Date / Time No Known Allergies Allergy Mild Verified 10/20/24 11:08 Vital Signs Vital Signs - 24 hr 10/20/24 11:10 Temperature 96.6 F L Pulse Rate 77 Respiratory Rate 20 Blood Pressure 133/75 Pulse Oximetry 100 Oxygen Delivery Room Air Exam Const: General: comfortable and no acute distress HENMT: Face/Nose/Sinus: Normal nares present Eyes: General: appearance normal, both eyes and all related structures Neck: Neck: no JVD Resp: Auscultation: clear to auscultation bilaterally Cardio: Rate: regular rate Rhythm: regular rhythm GI: Inspection: non-distended GI Palp: Yes Soft to palpation Skin: General skin exam: normal color Neuro: Speech: normal speech Extrem: General: normal to inspection Psych: Mental Status: mental status grossly normal Assessment and Plan Assessment and plan (1) Colon cancer screening: Code(s): Z12.11 - Encounter for screening for malignant neoplasm of colon Status: Acute Assessment and Plan: colonoscopy
[2024-10-20 12:28] VITALS: BP 70/44; PULSE 67; RESP 20; O2SAT 97
[2024-10-20 12:32] VITALS: BP 89/60; PULSE 60; RESP 20; O2SAT 96
[2024-10-20 12:38] VITALS: BP 104/60; PULSE 73; RESP 20; O2SAT 100
[2024-10-20 12:48] VITALS: BP 110/70; PULSE 71; RESP 18; O2SAT 100
== END 2024-10-20 12:56 | disposition home or self-care (01) ==
PROVIDERS: PCP Emergency Medicine; Referring Provider Emergency Medicine; Visit Provider Internal Medicine Gastroenterology
PROC: 0DJD8ZZ Inspection of Lower Intestinal Tract, Via Natural or Artificial Opening Endoscopic (ICD-10-PCS; CPT 45378; principal; 2024-10-20 12:30)
DX: Z12.11 Encounter for screening for malignant neoplasm of colon (principal); D12.0 Benign neoplasm of cecum; D12.3 Benign neoplasm of transverse colon; K64.8 Other hemorrhoids; K57.30 Diverticulosis of large intestine without perforation or abscess without bleeding; E78.2 Mixed hyperlipidemia; E55.9 Vitamin D deficiency, unspecified; I10 Essential (primary) hypertension; Z98.890 Other specified postprocedural states; Z80.0 Family history of malignant neoplasm of digestive organs; Z82.49 Family history of ischemic heart disease and other diseases of the circulatory system
CPT/HCPCS: 45380; 45385; 88305; J2003; J2704; J7120